=== PATIENT | female | born 2000 | race Caucasian/White ===

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

== ENCOUNTER 2018-01-16 18:23 | Emergency (ER) | payer BC ==
[~2018-01-16] VITALS: Ht 170.2 cm; Wt 117.9 kg
[~2018-01-16 18:23] MED LIST changes: -ALBU90OI6 INH; -BREO ELLIPTA 11 EACH IH; -TIOT18 INH
[2018-01-16] MEDS ORDERED: ALBU90OI6 INH (18:45)
[2018-01-16] MEDS ORDERED: BREO ELLIPTA 11 EACH IH (18:45)
== END 2018-01-16 19:47 | disposition home or self-care (01) ==
LOC: ER 18:23
DX: R00.2 Palpitations (principal); J45.909 Unspecified asthma, uncomplicated; Z79.51 Long term (current) use of inhaled steroids; Z79.899 Other long term (current) drug therapy
CPT/HCPCS: 71046; 93005; 93010; 99285-25

== ENCOUNTER 2019-04-14 11:36 | Day surgery (SDC) | payer BC ==
[~2019-04-14] VITALS: Ht 170.2 cm; Wt 133.2 kg
[~2019-04-14 11:36] MED LIST changes: +ALBU90OI6 INH; +ATEN25 PO; +AZELASTINE137 MCG/0.; +BENZ100A; +BREO ELLIPTA 11 EACH IH; +BREO ELLIPTA 21 EACH INH; +Sudogest30 MG PO; +TIOT18 INH
--- NOTE | 2019-04-14 14:53 | NUR ---
04/14/19 3953 Pita Cai AFTER GETTING TO RECLINER, STATES HARD TO BREATHE, LUNGS CLEAR T/O WITH GOOD AIR MOVEMENT AND NO WHEEZES. COACHED TO SLOW BREATHING AND SHE NOW FEELS BETTER
== END 2019-04-14 15:50 | disposition home or self-care (01) ==
LOC: ORSCSDS 11:36
PROVIDERS: Orthopaedic Surgery
PROC: 0SBD4ZZ Excision of Left Knee Joint, Percutaneous Endoscopic Approach (ICD-10-PCS; principal; 2019-04-14 12:45)
DX: M65.9 Synovitis and tenosynovitis, unspecified (principal); M25.562 Pain in left knee; M94.262 Chondromalacia, left knee; E66.01 Morbid (severe) obesity due to excess calories; Z68.42 Body mass index [BMI] 45.0-49.9, adult; J45.909 Unspecified asthma, uncomplicated; Z79.899 Other long term (current) drug therapy
CPT/HCPCS: J0690; J1100; J2250; J2405; J2704; J3010; J7120

== ENCOUNTER 2020-01-11 15:31 | Emergency (ER) | payer BC ==
[~2020-01-11] VITALS: Ht 170.2 cm; Wt 133.8 kg
[2020-01-11] MEDS ORDERED: BREO ELLIPTA 11 EAC1 IH (16:58)
[2020-01-11] MEDS ORDERED: IBUP800 PO (18:40)
[2020-01-11] MEDS ORDERED: CODACE30 PO (18:40)
== END 2020-01-11 19:02 | disposition home or self-care (01) ==
LOC: ER 15:31
DX: S93.402A Sprain of unspecified ligament of left ankle, initial encounter (principal); S93.401A Sprain of unspecified ligament of right ankle, initial encounter; J45.909 Unspecified asthma, uncomplicated; Z79.899 Other long term (current) drug therapy; X50.3XXA Overexertion from repetitive movements, initial encounter
CPT/HCPCS: 73600; 73610; 99283-25; A9270-GY